=== PATIENT | male | born 1940 | race Caucasian/White ===

== ENCOUNTER 2016-12-25 14:07 | Emergency (ER) | payer MEDICARE ==
[2016-12-25 14:34] LABS: BASO % 0.6 % (0-6); EOS % 0.4 % (0-6); GRAN % 72.2 % (47-80); HEMATOCRIT 40.3 % (42.0-52.0); HEMOGLOBIN 13.8 gm/dl (14.0-18.0); LYMPH % 20.4 % (16-45); MEAN CELL VOLUME 97.1 fl (81-97); MEAN CORPUSCULAR HGB CONC 34.2 g/dl (32-36); MEAN PLATELET VOLUME 9.5 fl (7.4-10.4); MONO % 6.4 % (0-9); PLATELET COUNT 249 K/uL (130-400); RED BLOOD COUNT 4.15 M/uL (4.40-5.70); RED CELL DISTRIBUTION WIDTH 13.1 % (11.5-14.5); WHITE BLOOD COUNT W/O DIFF 7.8 K/uL (4.2-12.2)
[2016-12-25 14:38] LABS: MEAN CORPUSCULAR HEMOGLOBIN 33.2 pg (27-33)
[2016-12-25 14:47] LABS: ALB/GLOB RATIO 1.7 (1.1-1.8); ALBUMIN 4.6 gm/dL (3.5-5.0); ALKALINE PHOSPHATASE 83 U/L (38-126); ALT/SGPT 37 U/L (21-72); AST/SGOT 43 U/L (17-59); BILIRUBIN,TOTAL 1.12 mg/dL (0.2-1.3); BLOOD UREA NITROGEN 17 mg/dL (9-20); EST GLOMERULAR FILTRATION RATE > 60 ml/min; GLUCOSE,RANDOM 88 mg/dL (70-110); TOTAL PROTEIN 7.3 gm/dL (6.3-8.2)
--- NOTE | 2016-12-25 14:51 | Emergency Department Record ---
History of Present Illness - General Chief Complaint: Alcohol Intoxication Stated Complaint: INTOXICATED Time Seen by Provider: 12/25/16 14:22 Source: Patient Mode of Arrival: Ambulatory Limitations: No limitations - History of Present Illness Initial Comments: The patient is here due to being intoxicated at home. He was found by a friend and 911 was called. The patient wanted to come here to [facility] even though he lives in [place] and goes to the [facility] ER weekly. He was just there in the ER at [facility] yesterday. The patient denies any injury or trauma or any suicidal ideation. The patient did have a neg Head and Cervical CT yesterday at [facility] due to a recent fall. Per hx from [facility] the patient is a very heavy alcohol drinker and drinks daily. MD Complaint: Alcohol dependence Last Drink: Just [employer] Chronic Alcohol Use: Yes Previous Visits for Alcohol Intoxication?: Yes (3 times a week) Recent Trauma: Yes ([place] yesterday) Associated Symptoms: Denies other symptoms - [place] Coma Scale Eye Response: (4) Open spontaneously Motor Response: (6) Obeys commands Verbal Response: (4) Confused conversation [place] Total: 14 - Related Data Home Medications Medication Instructions Recorded Confirmed Last Taken Aspirin [Aspirin EC] 325 mg PO DAILY 12/25/16 12/25/16 Unknown Benazepril HCl [Lotensin] 10 mg PO DAILY 12/25/16 12/25/16 Unknown Glucosamine Sulf/Chondroitin A 2 each PO DAILY 12/25/16 12/25/16 Unknown [Glucosamine-Chondroitin Cap] Mirtazapine [Remeron] 15 mg PO QHS 12/25/16 12/25/16 Unknown Multivitamin [Multi-Vitamin Daily] 1 each PO DAILY 12/25/16 12/25/16 Unknown Saw [place] 500 mg PO DAILY 12/25/16 12/25/16 Unknown Sennosides/Docusate Sodium [Stool 1 each PO DAILY 12/25/16 12/25/16 Unknown Softener-Laxative Tablet] Vit C/Vit E AC/Lut/Copper/Zinc 1 tab PO DAILY 12/25/16 12/25/16 Unknown [PreserVision Lutein Softgel] Allergies Allergy/AdvReac Type Severity Reaction Status Date / Time adhesive tape Allergy RASH Verified 12/25/16 15:13 Travel Screening - Travel/Exposure Within Last 30 Days Have you traveled within the last 30 days?: No - Travel/Exposure Within Last Year Have you traveled outside the [place] in the last year?: No - Additonal Travel Details Have you been exposed to anyone with a communicable illness?: No - Travel Symptoms Symptom Screening: None Review of Systems Constitutional: Denies: Chills, Fever Eyes: Denies: Eye discharge ENT: Denies: Congestion Respiratory: Denies: Cough, Dyspnea Past Medical History - SOCIAL HISTORY Smoking Status: Former smoker Alcohol Use: Heavy Alcohol Use Comment: 1/5 a day Drug Use: None - RESPIRATORY Hx Respiratory Disorders: No - CARDIOVASCULAR Hx Hypertension: Yes - NEURO Hx Neuro Disorders: No - GI Hx GI Disorders: No - Hx Genitourinary Disorders: No - ENDOCRINE Hx Diabetes: No Hx Thyroid Disease: No - MUSCULOSKELETAL Hx Arthritis: Yes - PSYCH Hx Anxiety: Yes Hx Depression: Yes - HEMATOLOGY/ONCOLOGY Hx Anemia: No Family Medical History Any Significant Family History?: Yes Hx Alcohol Use: Father, Grandparents Hx Anxiety: Father Physical Exam - General General Appearance: Alert, Oriented x3, Cooperative, No acute distress - Head Head exam: Normocephalic. negative: Atraumatic (There is an abrasion to the R parietal area of the scalp.) - Eye Eye exam: Normal appearance, PERRL - ENT Throat exam: Normal inspection. negative: Tonsillar erythema, Tonsillar exudate - Neck Neck exam: Normal inspection, Full ROM. negative: Tenderness - Respiratory Respiratory exam: Normal lung sounds bilaterally. negative: Respiratory distress - Cardiovascular Cardiovascular Exam: Regular rate, Normal rhythm, Normal heart sounds - GI/Abdominal GI/Abdominal exam: Soft, Normal bowel sounds. negative: Tenderness - Extremities Extremities exam: Normal inspection, Full ROM, Normal capillary refill. negative: Tenderness - Neurological Neurological exam: Alert, Oriented X3 (The patient is answering all questions normally.). negative: Abnormal gait, Altered, Motor sensory deficit, Normal gait, Reflexes normal - Psychiatric Psychiatric exam: negative: Anxious, Depressed Course Vital Signs 12/25/16 14:11 Temperature 97.4 F L Pulse Rate 91 H Respiratory 18 Rate Blood Pressure 147/109 Pulse Ox 95 - Reevaluation(s) Reevaluation #1: The patient is doing well. He denies any new issues or problems. I did review his lab work and the electrolytes and anion gap are improved from yesterdays results. 12/25/16 15:07 Reevaluation #2: The patient is doing very well at this time. He denies any pain or discomfort. 12/25/16 16:23 Reevaluation #3: The patient is doing very well at this time. He is up walking with no difficulty or ataxia. 12/25/16 16:39 Reevaluation #4: The patient is doing very well at this time. His speech is clear and he is walking normally. The patient would like to go home to feed his dog. He has no ataxia or weakness or unsteadiness. He appears very ready and stable for discharge. The patient denies any depression or suicidal ideation. 12/25/16 17:28 12/25/16 17:43 Medical Decision Making - Data Complexity MDM Data: Labs Ordered and/or Reviewed - Lab Data Result diagrams: 12/25/16 14:24 12/25/16 14:24 Lab Results 12/25/16 Range/Units 14:24 WBC 7.8 (4.2-12.2) K/uL RBC 4.15 L (4.40-5.70) M/uL Hgb 13.8 L (14.0-18.0) gm/dl Hct 40.3 L (42.0-52.0) % MCV 97.1 H (81-97) fl MCH 33.2 H (27-33) pg MCHC 34.2 (32-36) g/dl RDW 13.1 (11.5-14.5) % Plt Count 249 (130-400) K/uL MPV 9.5 (7.4-10.4) fl Gran % 72.2 (47-80) % Lymphocytes % 20.4 (16-45) % Monocytes % 6.4 (0-9) % Eosinophils % 0.4 (0-6) % Basophils % 0.6 (0-6) % Disposition Disposition: Discharge Clinical Impression: Alcohol intoxication Qualifiers: Complication of substance-induced condition: uncomplicated Qualified Code(s): F10.920 - Alcohol use, unspecified with intoxication, uncomplicated Disposition: Home, Self-Care Condition: (1) Good Instructions: Alcohol Intoxication (ED) Additional Instructions: Please decrease your alcohol intake and continue your regular medicines. Please see your PCP next week for recheck. Return to the ER for any problems. Forms: Patient Portal Access Time of Disposition: 17:44 Quality - Quality Measures Quality Measures: N/A - Blood Pressure Screening View Details: Yes Does Patient Have Any of the Following: No Blood Pressure Classification: Hypertensive Reading Systolic Measurement: 147 Diastolic Measurement: 109 Screening for High Blood Pressure: < Pre-Hypertensive BP, F/U Documented > [ [id number]] Pre-Hypertensive Follow-up Interventions: Referral to alternative/primary care provider.
== END 2016-12-25 18:28 | disposition home or self-care (01) ==
LOC: ER 14:07
DX: F10.220 Alcohol dependence with intoxication, uncomplicated (principal); Y90.8 Blood alcohol level of 240 mg/100 ml or more
CPT/HCPCS: 99283 ×2; 85025; 80053; G0480; 80320